=== PATIENT | female | born 1960 | race Caucasian/White ===

== ENCOUNTER 2016-10-09 17:53 | Emergency (ER) | payer BC ==
[~2016-10-09] VITALS: Ht 162.6 cm; Wt 90.0 kg
[2016-10-09 19:56] VITALS: BP 178/98
[2016-10-09] MEDS ORDERED: HYDROCODONE/APAP 5/325MG TABLET. PO ONE (20:15)
--- NOTE | 2016-10-09 20:44 | PHYS DOC ---
Past Medical History Past Medical History: Hypertension Past Surgical History: Hysterectomy, Tonsillectomy Alcohol Use: None Drug Use: None Adult General Chief Complaint Chief Complaint: WRIST PAIN [facility] HPI Patient is a 56 year old female who presents with right arm pain after fall today. reports tripping earlier this am and pain has continued throughout the day. No interventions prior to arrival Review of Systems Review of Systems Constitutional: Denies fever or chills Eyes: Denies change in visual acuity, redness, or eye pain HENT: Denies nasal congestion or sore throat Respiratory: Denies cough or shortness of breath Cardiovascular: No additional information not addressed in HPI GI: Denies abdominal pain, nausea, vomiting, bloody stools or diarrhea [] : Denies dysuria or hematuria [] Musculoskeletal: Right arm pain Integument: Denies rash or skin lesions [] Neurologic: Denies headache, focal weakness or sensory changes Endocrine: Denies polyuria or polydipsia [] Current Medications Current Medications Current Medications Medications (Trade) Dose Ordered Sig/Clemente Start Time Stop Time Status Last Admin Dose Admin Acetaminophen/ Hydrocodone Bitart (Lortab 5/325) 1 tab 1X ONCE 10/09/16 20:15 10/09/16 20:16 DC Allergies Allergies Allergies Coded Allergies Type Severity Reaction Last Updated Verified No Known Drug Allergies 10/09/16 No Physical Exam Physical Exam Constitutional: Well developed, well nourished, no acute distress, non-toxic appearance. [] HENT: Normocephalic, atraumatic, bilateral external ears normal, oropharynx moist, no oral exudates, nose normal. [] Eyes: PERRLA, EOMI, conjunctiva normal, no discharge. [] Neck: Normal range of motion, no tenderness, supple, no stridor. [] Cardiovascular:Heart rate regular rhythm, no murmur [] Lungs & Thorax: Bilateral breath sounds clear to auscultation [] Abdomen: Bowel sounds normal, soft, no tenderness, no masses, no pulsatile masses. [] Skin: Warm, dry, no erythema, no rash. [] Back: No tenderness, no CVA tenderness. [] Extremities: no cyanosis, no clubbing, no edema. Tenderness proximal forearm near elbow. Limited ROM due to pain. Neurologic: Alert and oriented X 3, normal motor function, normal sensory function, no focal deficits noted. [] Psychologic: Affect normal, judgement normal, mood normal. [] Current Patient Data Vital Signs Vital Signs Date Time Temp Pulse Resp B/P Pulse Ox O2 Delivery O2 Flow Rate FiO2 10/09/16 19:56 98.0 97 16 96 Room Air 98.0 EKG EKG [] Radiology/Procedures Radiology/Procedures Xray reviewed with Dr. Mccord. Placed in sling for possible radial head fracture , closed and non displaced. Instructed to follow up with ortho Course & Med Decision Making Course & Med Decision Making Pertinent Labs and Imaging studies reviewed. (See chart for details) [] Dragon Disclaimer Dragon Disclaimer This electronic medical record was generated, in whole or in part, using a voice recognition dictation system. Departure Departure Impression: Primary Impression: Radial head fracture, closed Disposition: 01 HOME, SELF-CARE Condition: STABLE Referrals: MARVIN AMADOR (PCP) RYLEY VALLEJO MD Patient Instructions: Radial Head Fracture, [id number] Additional Instructions: 1. Call Ortho Tuesday for follow up 2. Take medication as prescribed. 3. Return if problems or concerns Scripts Hydrocodone/Apap 5-325 ([place] 5-325 Tablet)1 Each Tablet1 Tab PO PRN Q6HRS PRN PAIN #10 TAB Prov:FRANCIE CUEVA APRN 10/09/16 FRANCIE CUEVA APRN Oct 09, 2016 20:44
[2016-10-09] MEDS ORDERED: HYDR-971 PO (21:37)
--- NOTE | 2016-10-10 08:32 | RAD ---
Right wrist 3 views. History: Pain after a fall, trauma 3 views were taken of the right wrist. There is not evidence of an acute fracture or osseous abnormality. Impression: 1. Negative right wrist.
--- NOTE | 2016-10-10 08:34 | RAD ---
Right forearm 2 views. History: Pain after a fall, trauma 2 views were taken of the right forearm. There are displacement of the fat pads of the elbow. There is a nondisplaced radial neck fracture. No other fracture or osseous abnormality is noted. Impression: 1. Right radial neck fracture.
--- NOTE | 2016-10-10 08:36 | RAD ---
Right elbow 3 views. History: Pain after a fall, trauma Right elbow 3 views were taken of the right elbow. There there is displacement of the fat pads of the elbow. There is a nondisplaced radial neck fracture. No other fracture is noted. Impression: 1. Nondisplaced right radial neck fracture.
== END 2016-10-09 21:51 | disposition home or self-care (01) ==
LOC: ER 17:53
DX: S52.124A Nondisplaced fracture of head of right radius, initial encounter for closed fracture (principal); I10 Essential (primary) hypertension; W19.XXXA Unspecified fall, initial encounter; Y93.89 Activity, other specified; Y99.8 Other external cause status; Y92.89 Other specified places as the place of occurrence of the external cause
CPT/HCPCS: 73080; 73090; 73110; 99284